=== PATIENT | male | born 1970 | race Caucasian/White ===

== ENCOUNTER 2020-03-04 23:52 | Inpatient (IN) | payer SELFPAY ==
[~2020-03-04] VITALS: Ht 162.6 cm; Wt 65.8 kg
[2020-03-04] MEDS ORDERED: SODIUM CHLORIDE 0.9% 1000ML 1,000 ML IV STA (23:55)
[2020-03-05] VITALS (7 sets, daily range): BP systolic 110–129; BP diastolic 75–88
--- NOTE | 2020-03-05 | Emergency Department Note ---
History of Present Illnes History of Present Illness History of Present Illness This is a 50 year old Unknown male was walking across the street when he suddenly passed out with (+) LOC. EMS transported patient uneventfully to ED. Patient AO x 3 without CP . 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 Onset (how long ago): hour(s) Severity: moderate Onset quality: sudden Duration (how long): hour(s) Timing of current episode: constant Progression: partially resolved Chronicity: new Context: Denies recent illness, Denies recent surgery, Denies recent immobilization, Denies recent travel, Denies trauma/injury, Denies new medications, Denies hx of DVT/PE, Denies non-compliance w/ medications, Denies other Relieving factors: none Exacerbating factors: none Associated symptoms: Denies denies other symptoms, Denies confusion, Denies chest pain, Denies cough, Denies diaphoresis, Denies fever/chills, Denies headaches, Denies loss of appetite, Denies malaise, Denies nausea/vomiting, Denies rash, Denies seizure, Denies shortness of breath, Denies syncope, Denies weakness, Denies other Past Medical/Family History Physician Review I have reviewed the patient's past medical and family history. Any updates have been documented here. Past Medical History Recent Fever: No Clinical Suspicion of Infectio: No New/Unexplained Change in Ment: No Past Medical History: None Past Surgical History: None Social History Smoking Cessation: Current some day smoker Counseling Performed: Yes Alcohol Use: Daily Any Illegal Drug Use: No Other Last Tetanus: UNK Review of Systems Review of Systems Constitutional: Reports no symptoms EENTM: Reports no symptoms Cardiovascular: Reports no symptoms Respiratory: Reports no symptoms Gastrointestinal: Reports no symptoms Genitourinary: Reports no symptoms Musculoskeletal: Reports no symptoms Integumentary: Reports no symptoms Neurological: Reports no symptoms Psychological: Reports no symptoms Endocrine: Reports no symptoms Hematological/Lymphatic: Reports no symptoms Physical Exam Related Data Allergies: Coded Allergies: No Known Allergies (Unverified , 04/03/15) Triage Vital Signs Vital Signs Date Time Temp Pulse Resp B/P (MAP) Pulse Ox O2 Delivery O2 Flow Rate FiO2 03/04/20 23:53 98.4 91 20 139/97 97 Room Air 03/05/20 04:45 2.0 Vital signs reviewed: Yes Physical Exam CONSTITUTIONAL Constitutional: Present well-developed, Present well-nourished HENT HENT: Present other (multiple facial abrasions. 2 cm lacertion b/l suborbital region) HENT L/R: Present left ext ear normal, Present right ext ear normal EYES Eyes: Reports PERRL, Reports conjunctivae normal NECK Neck: Present ROM normal PULMONARY Pulmonary: Present effort normal, Present breath sounds normal CARDIOVASCULAR Cardiovascular: Present regular rhythm, Present heart sounds normal, Present capillary refill normal, Present normal rate GASTROINTESTINAL Abdominal: Present soft, Present nontender, Present bowel sounds normal GENITOURINARY Genitourinary: Present exam deferred SKIN Skin: Present warm, Present dry MUSCULOSKELETAL Musculoskeletal: Present ROM normal NEUROLOGICAL Neurological: Present alert, Present oriented x 3, Present no gross motor or sensory deficits PSYCHOLOGICAL Psychological: Present mood/affect normal, Present judgement normal Results Laboratory Lab results reviewed: Yes Laboratory comments Laboratory Tests Test 03/05/20 00:50 White Blood Count 7.46 x10e3/uL (4.8-10.8) Red Blood Count 4.32 x10e6/uL (4.3-5.7) Hemoglobin 14.2 g/dL (14.0-18.0) Hematocrit 38.2 % (38.2-49.6) Mean Corpuscular Volume 88.4 fL (81-99) Mean Corpuscular Hemoglobin 32.9 pg (28-32) Mean Corpuscular Hemoglobin Concent 37.2 g/dL (31-35) Red Cell Distribution Width 12.4 % (11.7-14.4) Platelet Count 121 x10e3/uL (140-360) Neutrophils (%) (Auto) 72.0 % (38.7-80.0) Lymphocytes (%) (Auto) 12.2 % (18.0-39.1) Monocytes (%) (Auto) 13.4 % (4.4-11.3) Eosinophils (%) (Auto) 1.2 % (0.0-6.0) Basophils (%) (Auto) 0.8 % (0.0-1.0) Neutrophils # (Auto) 5.4 (2.1-6.9) Lymphocytes # (Auto) 0.9 (1.0-3.2) Monocytes # (Auto) 1.0 (0.2-0.8) Eosinophils # (Auto) 0.1 (0.0-0.4) Basophils # (Auto) 0.1 (0.0-0.1) Absolute Immature Granulocyte (auto 0.03 x10e3/uL (0-0.1) Sodium Level 124 mmol/L (136-145) Potassium Level 3.5 mmol/L (3.5-5.1) Chloride Level 87 mmol/L (98-107) Carbon Dioxide Level 19 mmol/L (22-29) Anion Gap 21.5 mmol/L (8-16) Blood Urea Nitrogen 9 mg/dL (7-26) Creatinine 0.78 mg/dL (0.72-1.25) Estimat Glomerular Filtration Rate > 60 ML/MIN (60-) BUN/Creatinine Ratio 12 (6-25) Glucose Level 113 mg/dL (74-118) Calcium Level 9.1 mg/dL (8.4-10.2) Total Bilirubin 0.8 mg/dL (0.2-1.2) Aspartate Amino Transf (AST/SGOT) 178 IU/L (5-34) Alanine Aminotransferase (ALT/SGPT) 138 IU/L (0-55) Alkaline Phosphatase 57 IU/L (40-150) Creatine Kinase 412 IU/L (30-200) Creatine Kinase MB 5.70 ng/mL (0-5.0) Troponin I 0.001 ng/mL (0-0.300) Total Protein 7.4 g/dL (6.5-8.1) Albumin 4.6 g/dL (3.5-5.0) Globulin 2.8 g/dL (2.3-3.5) Albumin/Globulin Ratio 1.6 (0.8-2.0) Ethyl Alcohol Level 336.9 mg/dL (0.0-10.0) Imaging Imaging results reviewed: Yes Impressions [place] [address] Patient Name: HUSEYIN LEONARD MR #: [id number] : 1970 Age/Sex: 50/M Req #: [id number] Adm Physician: Ordered by: PATRICIA KENT DO Report #: [id number] Location: ER Room/Bed: Procedure: [id number] CT/CT MAXIO FAC/PARANAS WO Exam Date: Exam Time: REPORT STATUS: Signed CT BRAIN WO, CT MAXIO FAC/PARANAS WO HISTORY: Trauma COMPARISON: None. TECHNIQUE: Axial CT images through the head and face were obtained without contrast. Coronal/sagittal reformations were created. One or more of the following dose reduction techniques were used: Automated exposure control, adjustment of the mA and/or kV according to patient size, and/or utilization of iterative reconstruction technique. DISCUSSION: HEAD CT: Motion and beam hardening artifacts obscure some details. Scalp/Skull: Unremarkable. Brain sulci: Appropriate for patient's age. Ventricles: Normal in size and configuration. No hydrocephalus. Extra-axial spaces: No masses or fluid collections. Parenchyma: No abnormal densities. No masses, hemorrhage, or large vascular territory acute infarct. Dural sinuses: No abnormal densities. Sellar/Suprasellar region: Intact. Skull base: Intact. Incidental findings: None. FACIAL CT: Mild bilateral superficial periorbital edema is present. Minimally displaced fractures of the right nasal bone and anterior nasal spine are age indeterminate. Otherwise, no definite additional acute fracture is seen. There are mild degenerative changes throughout the spine. The orbits are intact. Intraorbital contents are grossly unremarkable. Minimal bilateral maxillary sinus and ethmoid air cell mucosal thickening is present. Apparent posterior sagging of the left tongue may be due to left hypoglossal nerve denervation. This can be correlated with physical exam. The left piriform sinus is mildly patulous, which could be seen in left vocal cord palsy. IMPRESSION: Head CT: No acute intracranial abnormalities. Maxillofacial CT: 1. Age indeterminate minimally displaced fractures of the right nasal bone and anterior nasal spine. 2. Otherwise, no acute osseous abnormalities in the face. 3. Apparent posterior sagging of the left tongue may be due to left hypoglossal nerve denervation. This can be correlated with physical exam. 4. Mildly patulous left piriform sinus, which could be seen in left vocal cord palsy. Signed by: Dr. Kirit [place] M.D. on 03/05/2020 1:43 AM Dictated By: KIRIT CASTRO MD 2 Transcribed By: MATT on 03/05/20142 COPY TO: PATRICIA KENT DO~ [place] [address] Patient Name: HUSEYIN LEONARD MR #: [id number] : 1970 Age/Sex: 50/M Req #: [id number] Adm Physician: Ordered by: PATRICIA KENT DO Report #: [id number] Location: ER Room/Bed: Procedure: DX/SHOULDER RIGHT COMPLETE Exam Date: Exam Time: REPORT STATUS: Signed SHOULDER RIGHT COMPLETE - 2 views HISTORY: Pain COMPARISON: None available. FINDINGS: Bones: No acute displaced fracture. Osseous alignment is within normal limits. Joints: The joint spaces are well-maintained. Soft tissues: The soft tissues appear unremarkable. IMPRESSION: No acute radiographic abnormality. Signed by: Dr. Sai Gaspar MD on 03/05/2020 1:30 AM Dictated By: SAI GASPAR MD 9 Transcribed By: MATT on 03/05/20129 COPY TO: PATRICIA KENT DO~ Procedures 12 Lead ECG Interpretation ECG Interpretation : ECG: ECG 1 Manuscript Reader: Interpreted by ED physician Date: Mar 05, 2020 Time: 00:29 Prior ECG tracings: reviewed Rhythm: sinus rhythm Ectopy: PJC's Rate: normal BPM: 98 QRS axis: normal ST segments normal: Yes T waves normal: Yes Clinical Impression: normal ECG Laceration Laceration: Laceration 1 Site: face Side: left Size (cm): 2 Description: linear Depth: simple, single layer Skin layer closed with: other (skin adhesive) Assessment & Plan Medical Decision Making MDM Diff Dx : acute coronary syndrome, PE, drug/alcohol intoxication, dehydration, electrolyte abnormality Assessment & Plan Final Impression: (1) Syncope and collapse (2) Facial laceration (3) Alcohol abuse (4) Hyponatremia Depart Disposition: ADMITTED Home Meds No Active Prescriptions or Reported Meds PATRICIA KENT DO Mar 04, 2020 23:59
[2020-03-05 01:00] LABS: BASOPHILS # (AUTO) 0.1 (0.0-0.1); BASOPHILS % 0.8 % (0.0-1.0); EOSINOPHILS # (AUTO) 0.1 (0.0-0.4); EOSINOPHILS % 1.2 % (0.0-6.0); HEMATOCRIT 38.2 % (38.2-49.6); HEMOGLOBIN 14.2 g/dL (14.0-18.0); LYMPHOCYTES # (AUTO) 0.9 (1.0-3.2); LYMPHOCYTES % 12.2 % (18.0-39.1); MEAN CORPUSCULAR HEMOGLOBIN 32.9 pg (28-32); MEAN CORPUSCULAR HGB CONC 37.2 g/dL (31-35); MEAN CORPUSCULAR VOLUME 88.4 fL (81-99); MONOCYTES % 13.4 % (4.4-11.3); NEUTROPHILS # (AUTO) 5.4 (2.1-6.9); PLATELET COUNT 121 x10e3/uL (140-360); RED BLOOD COUNT 4.32 x10e6/uL (4.3-5.7); RED CELL DISTRIBUTION WIDTH 12.4 % (11.7-14.4)
[2020-03-05 01:18] LABS: ALANINE AMINOTRANSFERASE 138 IU/L (0-55); ALBUMIN 4.6 g/dL (3.5-5.0); ALBUMIN/GLOBULIN RATIO 1.6 (0.8-2.0); ALKALINE PHOSPHATASE 57 IU/L (40-150); ANION GAP 21.5 mmol/L (8-16); BLOOD UREA NITROGEN 9 mg/dL (7-26); BUN/CREATININE RATIO 12 (6-25); CALCIUM 9.1 mg/dL (8.4-10.2); CARBON DIOXIDE 19 mmol/L (22-29); CHLORIDE 87 mmol/L (98-107); CREATINE KINASE 412 IU/L (30-200); CREATININE, SERUM 0.78 mg/dL (0.72-1.25); EST GLOMERULAR FILTRATION RATE > 60 ML/MIN (60-); GLUCOSE 113 mg/dL (74-118); POTASSIUM 3.5 mmol/L (3.5-5.1); SODIUM 124 mmol/L (136-145)
--- NOTE | 2020-03-05 01:33 | Diagnostic Imaging Report ---
SHOULDER RIGHT COMPLETE - 2 views HISTORY: Pain COMPARISON: None available. FINDINGS: Bones: No acute displaced fracture. Osseous alignment is within normal limits. Joints: The joint spaces are well-maintained. Soft tissues: The soft tissues appear unremarkable. IMPRESSION: No acute radiographic abnormality. Signed by: Dr. Sai Torres MD on 03/05/2020 1:30 AM
--- OUTSIDE RECORDS SUMMARY | 2020-03-05 01:35 | XMS REPORT | Continuity of Care Document ---
Author Author [facility] Organization [facility] Address [address] [place] [address] Phone Unavailable Care Team Providers Care Program Project Analyst Name Role Phone PATRICIA KENT Unavailable Problems This patient has no known problems. Allergies, Adverse Reactions, Alerts This patient has no known allergies or adverse reactions. Medications This patient has no known medications. Procedures This patient has no known procedures. Results Test Description Test Time Test Comments Results Result Comments Source SHOULDER RIGHT COMPLETE 2020-03-05 01:29:00 [facility] [address] [place] [address] Patient Name: HUSEYIN LEONARD MR #: [id number] : 1970 Age/Sex: 50/M Req #: [id number] Adm Physician: Ordered by: PATRICIA KENT DO Report #: [id number] Location: ER Room/Bed: Procedure: [id number] DX/SHOULDER RIGHT COMPLETE Exam Date: Exam Time: REPORT STATUS: Signed SHOULDER RIGHT COMPLETE - 2 views HISTORY: Pain COMPARISON: None available. FINDINGS: Bones: No acute displaced fracture. Osseous alignment is within normal limits. Joints: The joint spaces are well-maintained. Soft tissues: The soft ti ssues appear unremarkable. IMPRESSION: No acute radiographic abnormality. Signed by: Dr. Sai Gaspar MD on 03/05/2020 1:30 AM Dictated By: SAI GASPAR MD 9 Transcribed By: MATT on 03/05/20129 COPY TO: PATRICIA KENT DO
--- NOTE | 2020-03-05 01:46 | Diagnostic Imaging Report ---
CT BRAIN WO, CT MAXIO FAC/PARANAS WO HISTORY: Trauma COMPARISON: None. TECHNIQUE: Axial CT images through the head and face were obtained without contrast. Coronal/sagittal reformations were created. One or more of the following dose reduction techniques were used: Automated exposure control, adjustment of the mA and/or kV according to patient size, and/or utilization of iterative reconstruction technique. DISCUSSION: HEAD CT: Motion and beam hardening artifacts obscure some details. Scalp/Skull: Unremarkable. Brain sulci: Appropriate for patient's age. Ventricles: Normal in size and configuration. No hydrocephalus. Extra-axial spaces: No masses or fluid collections. Parenchyma: No abnormal densities. No masses, hemorrhage, or large vascular territory acute infarct. Dural sinuses: No abnormal densities. Sellar/Suprasellar region: Intact. Skull base: Intact. Incidental findings: None. FACIAL CT: Mild bilateral superficial periorbital edema is present. Minimally displaced fractures of the right nasal bone and anterior nasal spine are age indeterminate. Otherwise, no definite additional acute fracture is seen. There are mild degenerative changes throughout the spine. The orbits are intact. Intraorbital contents are grossly unremarkable. Minimal bilateral maxillary sinus and ethmoid air cell mucosal thickening is present. Apparent posterior sagging of the left tongue may be due to left hypoglossal nerve denervation. This can be correlated with physical exam. The left piriform sinus is mildly patulous, which could be seen in left vocal cord palsy. IMPRESSION: Head CT: No acute intracranial abnormalities. Maxillofacial CT: 1. Age indeterminate minimally displaced fractures of the right nasal bone and anterior nasal spine. 2. Otherwise, no acute osseous abnormalities in the face. 3. Apparent posterior sagging of the left tongue may be due to left hypoglossal nerve denervation. This can be correlated with physical exam. 4. Mildly patulous left piriform sinus, which could be seen in left vocal cord palsy. Signed by: Dr. Kirit [place] M.D. on 03/05/2020 1:43 AM
[2020-03-05] MEDS ORDERED: ONDANSETRON HCL INJ 2MG/ML 2ML 2 MG/ML VIAL IV PRN (02:30)
--- OUTSIDE RECORDS SUMMARY | 2020-03-05 02:52 | XMS REPORT | Continuity of Care Document ---
Author Author [facility] Organization [facility] Address [address] [place] [address] Phone Unavailable Care Team Providers Care Risk Prevention Engineer Name Role Phone PATRICIA KENT Unavailable Problems This patient has no known problems. Allergies, Adverse Reactions, Alerts This patient has no known allergies or adverse reactions. Medications This patient has no known medications. Procedures This patient has no known procedures. Results Test Description Test Time Test Comments Results Result Comments Source SHOULDER RIGHT COMPLETE 2020-03-05 01:29:00 [facility] [address] [place] [address] Patient Name: HUSEYIN LEONARD MR #: [id number] : 1970 Age/Sex: 50/M Req #: [id number] Adm Physician: Ordered by: PATRICIA KENT DO Report #: [id number] Location: ER Room/Bed: Procedure: [id number] DX/SHOULDER RIGHT COMPLETE Exam Date: Exam Time: [...] on 03/05/20129 COPY TO: PATRICIA KENT DO CT MAXIO FAC/PARANAS WO 2020-03-05 01:29:00 [facility] [address] [place] [address] Patient Name: HUSEYIN LEONARD MR #: [id number] : 1970 Age/Sex: 50/M Req #: [id number] Adm Physician: Ordered by: PATRICIA KENT DO Report #: [id number] Location: ER Room/Bed: Procedure: CT/CT MAXIO FAC/PARANAS WO Exam Date: Exam Time: REPORT STATUS: Signed CT BRAIN WO, CT MAXIO FAC/PARANAS WO HISTORY: Trauma COMPARISON: None. TECHNIQUE: Axial CT images through the head and face were obtained without contrast. Coronal/sagittal reformations were created. One or more of the following dose reduction techniques were used: Automated exposure control, adjustment of the mA and/or kV according to patient size, and/or utilization of iterative reconstruction technique. DISCUSSION: HEAD CT: Motion and beam hardening artifacts obscure some details. Scalp/Skull: Unremarkable. Brain sulci: Appropriate for patient's age. Ventricles: Normal in size and configuration. No hydrocephalus. Extra-axial spaces: No masses or fluid collections. Parenchyma: No abnormal densities. No masses, hemorrhage, or large vascular territory acute infarct. Dural sinuses: No abnormal densities. Sellar/Suprasellar region: Intact. Skull base: Intact. Incidental findings: None. FACIAL CT: Mild bilateral superficial periorbital edema is present. Minimally displaced fractures of the right nasal bone and anterior nasal spine are age indeterminate. Otherwise, no definite additional acute fracture is seen. There are mild degenerative changes throughout the spine. The orbits are intact. Intraorbital contents are grossly unremarkable. Minimal bilateral maxillary sinus and ethmoid air cell mucosal thickening is present. Apparent posterior sagging of the left tongue may be due to left hypoglossal nerve denervation. This can be correlated with physical exam. The left piriform sinus is mildly patulous, which could be seen in left vocal cord palsy. IMPRESSION: Head CT: No acute intracranial abnormalities. Maxillofacial CT: 1. Age indeterminate minimally displaced fractures of the right nasal bone and anter ior nasal spine. 2. Otherwise, no acute osseous abnormalities in the face. 3. Apparent posterior sagging of the left tongue may be due to left hypoglossal nerve denervation. This can be correlated with physical exam. 4. Mildly patulous left piriform sinus, which could be seen in left vocal cord palsy. Signed by: Dr. Kirit [place] M.D. on 03/05/2020 1:43 AM Dictated By: KIRIT CASTRO MD 2 Transcribed By: MATT on 03/05/20142 COPY TO: PATRICIA KENT DO CT BRAIN WO 2020-03-05 01:29:00 [place] [address] Patient Name: HUSEYIN LEONARD MR #: [id number] : 1970 Age/Sex: 50/M Req #: [id number] Adm Physician: Ordered by: PATRICIA KENT DO Report #: [id number] Location: ER Room/Bed: Procedure: [id number] CT/CT BRAIN WO Exam Date: Exam Time: REPORT STATUS: Signed CT BRAIN WO, CT MAXIO FAC/PARANAS WO HISTORY: Trauma COMPARISON: None. TECHNIQUE: Axial CT images through the head and face were obtained without contrast. Coronal/sagittal reformations were created. One or more of the following dose reduction techniques were used: Automated exposure control, adjustment of the mA and/or kV according to patient size, and/or utilization of iterative reconstruction technique. DISCUSSION: HEAD CT: Motion and beam hardening artifacts obscure some details. Scalp/Skull: Unremarkable. Brain sulci: Appropriate for patient's age. Ventricles: Normal in size and configuration. No hydrocephalus. Extra-axial spaces: No masses or fluid collections. Parenchyma: No abnormal densities. No masses, hemorrhage, or large vascular territory acute infarct. Dural sinuses: No abnormal densities. Sellar/Suprasellar region: Intact. Skull base: Intact. Incidental findings: None. FACIAL CT: Mild bilateral superficial periorbital edema is present. Minimally displaced fractures of the right nasal bone and anterior nasal spine are age indeterminate. Otherwise, no definite additional acute fracture is seen. There are mild degenerative changes throughout the spine. The orbits are intact. Intraorbital contents are grossly unremarkable. Minimal bilateral maxillary sinus and ethmoid air cell mucosal thickening is present. Apparent posterior sagging of the left tongue may be due to left hypoglossal nerve denervation. This can be correlated with physical exam. The left piriform sinus is mildly patulous, which could be seen in left vocal cord palsy. IMPRESSION: Head CT: No acute intracranial abnormalities. Maxillofacial CT: 1. Age indeterminate minimally displaced fractures of the right nasal bone and anterior nasal spine. 2. Otherwise, no acute osseous abnormalities in the face. 3. Apparent posterior sagging of the left tongue may be due to left hypoglossal nerve denervation. This can be correlated with physical exam. 4. Mildly patulous left piriform sinus, which could be seen in left vocal cord palsy. Signed by: Dr. Kirit [place] M.D. on 03/05/2020 1:43 AM Dictated By: KIRIT CASTRO MD 2 Transcribed By: MATT on 03/05/20142 COPY TO: PATRICIA KENT DO
[2020-03-05] MEDS: SODIUM CHLORIDE 0.9% 1000ML 1,000 ML IV SCH ×3 (03:23→18:23)
[2020-03-05] MEDS ORDERED: MULTIVITAMINS- 12 INJECTION 10 ML, FOLIC ACID MDV 5 MG, THIAMINE HCL INJ 100 MG in SODI... IV ONE ×2 (03:30→18:45)
[2020-03-05] MEDS ORDERED: FOLIC ACID 5 MG/ML VIAL ONE (03:41)
[2020-03-05] MEDS ORDERED: THIAMINE HCL INJ 100 MG/ML 2ML VIAL ONE (03:41)
[2020-03-05] MEDS ORDERED: MULTIVITAMINS INJECTION ONE ×2 (03:42→03:48)
[2020-03-05] MEDS ORDERED: SODIUM CHLORIDE 0.9% 1000ML 1,000 ML IV SCH (03:45)
[2020-03-05] MEDS ORDERED: SODIUM CHLORIDE 0.9% 1000ML 1,000 ML ONE (03:48)
[2020-03-05] MEDS ORDERED: DIAZEPAM INJ 5 MG/ML 2 ML IV ONE (04:00)
--- NOTE | 2020-03-05 07:00 | NUR ---
RCD PT AT BED PT IS ALERT AND ORIENTED VITALS CHECKED ,ADMISSION ASSESSMENT ,HISTORY AND FAMILY HISTORY DONE ,PT IS HOMELESS ,ACCORDING TO PT WHILE CROSSINGS STREET HE PASSED OUT BRUISES ON THE FACE ,IV PATENT INSTRUCTED THE PT REGARDING HOSPITAL POLICY AND ROUTINE BED LOW AND LOCKED CALL LIGHT IN REACH
--- NOTE | 2020-03-05 07:00 | NUR ---
PATIENT ARRIVED VIA STRETCHER WITH BELONGINGS. RECEIVED REPORT FROM TIMOTHY HURST NURSE. CALL LIGHT WITHIN REACH. PATIENT IN BED. PATIENT AMBULATES WELL AND IS A&OX3. GAVE REPORT TO ONCOMING NURSE.
[2020-03-05 07:32] LABS: AMPHETAMINES SCREEN,URINE NEGATIVE (NEGATIVE); BENZODIAZEPINES SCREEN,URINE NEGATIVE (NEGATIVE); PHENCYCLIDINE SCREEN,URINE NEGATIVE (NEGATIVE)
--- NOTE | 2020-03-05 10:02 | NUR ---
RECEIVED SOCIAL SERVICE CONSULT, CONSULTED WITH PT'S NURSE WHO STATED PT IS HOMELESS. MET WITH PT, PROVIDED SELF PAY PACKET WITH COMMUNITY RESOURCES WHICH INCLUDES HOMELESS RESOURCES- LIST OF HOMELESS SHELTERS, MEALS PLACES, FOOD PANTRIES, PROJECT ACCESS BUS ETC. PROVIDED INFORMATION ON APPLYING FOR HOMELESS GOLD CARD, REFERRED TO THE [facility]ALTH[facility] FOR THE HOMELESS PROGRAM FOR FURTHER ASSISTANCE WITH HOUSING.
--- NOTE | 2020-03-05 13:00 | NUR ---
DR CODY AWARE ABOUT ABNORMAL CK[facility]
[2020-03-05] MEDS: ACETAMINOPHEN 325 MG TAB PO PRN ×2 (13:12→19:03)
[2020-03-05] MEDS: PANTOPRAZOLE SOD 40 MG TABEC PO SCH (13:15)
--- NOTE | 2020-03-05 18:42 | NUR ---
PT RESTING ON BED BED SIDE REPORT GIVEN TO ONCOMING NURSE
[2020-03-05 18:52] LABS: CREATINE KINASE MB 8.7 ng/mL (0-5.0)
--- NOTE | 2020-03-05 19:30 | NUR ---
Bedside shift report received from day RN. Pt is alert and oriented x3. Pt is cooperative with care. Bruises on face and head s/p fall- hx alcohol abuse. Pt is tolerating po well. Respirations are even and unlabored. Left forearm iv 18G- site healthy. PIV infusing at 125 ml/hr.Tele with pulse ox on.Pt walking to bathroom- voiding without difficulty. Call light within reach. Bed locked and in low position.
[2020-03-06] VITALS (7 sets, daily range): BP systolic 112–131; BP diastolic 81–88
[2020-03-06] MEDS: SODIUM CHLORIDE 0.9% 1000ML 1,000 ML IV SCH ×3 (01:51→17:03)
[2020-03-06] MEDS: ACETAMINOPHEN 325 MG TAB PO PRN (01:57)
[2020-03-06 06:04] LABS: BASOPHILS # (AUTO) 0.1 (0.0-0.1); BASOPHILS % 0.8 % (0.0-1.0); EOSINOPHILS # (AUTO) 0.1 (0.0-0.4); EOSINOPHILS % 1.7 % (0.0-6.0); HEMATOCRIT 31.5 % (38.2-49.6); HEMOGLOBIN 11.1 g/dL (14.0-18.0); LYMPHOCYTES # (AUTO) 1.5 (1.0-3.2); LYMPHOCYTES % 20.6 % (18.0-39.1); MEAN CORPUSCULAR HEMOGLOBIN 33.7 pg (28-32); MEAN CORPUSCULAR HGB CONC 35.2 g/dL (31-35); MEAN CORPUSCULAR VOLUME 95.7 fL (81-99); NEUTROPHILS # (AUTO) 4.4 (2.1-6.9); NEUTROPHILS % 62.3 % (38.7-80.0); PLATELET COUNT 87 x10e3/uL (140-360); RED BLOOD COUNT 3.29 x10e6/uL (4.3-5.7); RED CELL DISTRIBUTION WIDTH 13.2 % (11.7-14.4)
[2020-03-06 06:15] LABS: ALANINE AMINOTRANSFERASE 83 IU/L (0-55); ALBUMIN 3.3 g/dL (3.5-5.0); ALBUMIN/GLOBULIN RATIO 1.7 (0.8-2.0); ALKALINE PHOSPHATASE 79 IU/L (40-150); ANION GAP 13.1 mmol/L (8-16); BLOOD UREA NITROGEN 10 mg/dL (7-26); BUN/CREATININE RATIO 15 (6-25); CALCIUM 7.5 mg/dL (8.4-10.2); CARBON DIOXIDE 21 mmol/L (22-29); CHLORIDE 102 mmol/L (98-107); CREATININE, SERUM 0.67 mg/dL (0.72-1.25); EST GLOMERULAR FILTRATION RATE > 60 ML/MIN (60-); GLUCOSE 112 mg/dL (74-118); MAGNESIUM 1.2 MG/DL (1.3-2.1); POTASSIUM 3.1 mmol/L (3.5-5.1); SODIUM 133 mmol/L (136-145)
--- NOTE | 2020-03-06 07:05 | NUR ---
RCD PT AT BED PT IS ALERT AND ORIENTED AND RESTING ON BED IV PATENT BED LOW AND LOCKED CALL LIGHT IN REACH
[2020-03-06] MEDS: PANTOPRAZOLE SOD 40 MG TABEC PO SCH (07:30)
[2020-03-06 09:09] LABS: PLATELET ESTIMATE MODERATELY DECREASED; PLATELET MORPHOLOGY COMMENT MODERATE LARGE; RBC MORPHOLOGY COMMENT NORMAL
[2020-03-06] MEDS: MAGNESIUM OXIDE 400 MG TAB PO SCH ×2 (12:59→17:00)
[2020-03-06] MEDS: POTASSIUM CHLORIDE 20 MEQ TAB CR PO SCH ×2 (12:59→17:00)
--- NOTE | 2020-03-06 18:41 | NUR ---
PT RESTING ON BED BED SIDE REPORT GIVEN TO ONCOMING NURSE
--- NOTE | 2020-03-06 19:25 | NUR ---
BEDSIDE SHIFT REPORT RECEIVED FROM DAY RN. PT IS ALERT AND ORIENTED X3. PT COOPERATIVE WITH CARE. RESPIRATIONS ARE EVEN AND UNLABORED. LUNGS CLEAR. INTERMITENT COUGH- SECRETIONS CREAMY WHITE SCANT AMOUNT. TELE WITH PULSE OX ON.NS INFUSING AT 125 ML /HR VIA LEFT FA 20G. SITE HEALTHY. PT UP TO BATHROOM VOIDING WITHOUT DIFFICULTY. PT DENIES PAIN. ABRASSIONS AND BRUISING ON FACE AND HEAD- S/P FALL PRIOR TO ADMISSION. CALL LIGHT WITHIN REACH. BED IN LOW POSITION.
[2020-03-06] MEDS ORDERED: LORAZEPAM 0.5 MG TAB PO NR (19:45)
[2020-03-06] MEDS ORDERED: LORAZEPAM 0.5 MG TAB PO ONE (19:45)
--- NOTE | 2020-03-06 19:45 | NUR ---
DR CODY'S OFFICE CALLED WHEN PT CAME OUT TO DESK ASKING IF HE COULD GO OUTSIDE. PT STATED HE "FELT ALL CLOSED IN AND WANTED TO GO OUTSIDE." HAND SHAKEY AT TIMES. [employer] SUPPORT REPRESENTATIVE GAVE ORDER FOR 1 TIME ATIVAN PO.ATIVAN GIVEN. WILL MONITOR FOR RELIEF OF ANXIETY.
--- NOTE | 2020-03-06 20:30 | NUR ---
PT EATTING SNACKS.PT CALMER WATCHING TV. WILL CONTINUE TO MONITOR FOR AGITATION AND ANXIETY.
[2020-03-06] MEDS ORDERED: HYDRALAZINE HCL 20 MG/ML VIAL IV PRN (22:15)
[2020-03-06] MEDS ORDERED: LORAZEPAM INJ 2 MG/ML VIAL IV PRN (22:15)
[2020-03-07] VITALS (7 sets, daily range): BP systolic 126–145; BP diastolic 76–93
[2020-03-07 05:57] LABS: BASOPHILS # (AUTO) 0.1 (0.0-0.1); BASOPHILS % 1.1 % (0.0-1.0); EOSINOPHILS # (AUTO) 0.1 (0.0-0.4); EOSINOPHILS % 2.1 % (0.0-6.0); HEMATOCRIT 30.1 % (38.2-49.6); HEMOGLOBIN 10.8 g/dL (14.0-18.0); LYMPHOCYTES # (AUTO) 1.4 (1.0-3.2); LYMPHOCYTES % 25.7 % (18.0-39.1); MEAN CORPUSCULAR HEMOGLOBIN 35.1 pg (28-32); MEAN CORPUSCULAR HGB CONC 35.9 g/dL (31-35); MEAN CORPUSCULAR VOLUME 97.7 fL (81-99); MONOCYTES # (AUTO) 0.7 (0.2-0.8); MONOCYTES % 12.3 % (4.4-11.3); NEUTROPHILS # (AUTO) 3.3 (2.1-6.9); NEUTROPHILS % 58.3 % (38.7-80.0); PLATELET COUNT 95 x10e3/uL (140-360); RED BLOOD COUNT 3.08 x10e6/uL (4.3-5.7); RED CELL DISTRIBUTION WIDTH 13.8 % (11.7-14.4)
[2020-03-07 06:09] LABS: ANION GAP 13.5 mmol/L (8-16); BLOOD UREA NITROGEN 6 mg/dL (7-26); BUN/CREATININE RATIO 10 (6-25); CALCIUM 7.6 mg/dL (8.4-10.2); CARBON DIOXIDE 22 mmol/L (22-29); CHLORIDE 104 mmol/L (98-107); CREATININE, SERUM 0.61 mg/dL (0.72-1.25); EST GLOMERULAR FILTRATION RATE > 60 ML/MIN (60-); GLUCOSE 85 mg/dL (74-118); POTASSIUM 3.5 mmol/L (3.5-5.1); SODIUM 136 mmol/L (136-145)
[2020-03-07 06:44] LABS: MAGNESIUM 1.1 MG/DL (1.3-2.1)
--- NOTE | 2020-03-07 07:00 | NUR ---
lab called with critical magnesium1.1. RN called [facility] regarding labs. reported to Day MALENA.
[2020-03-07] MEDS ORDERED: MAGNESIUM SULFATE 2GM/50ML 50 ML IV ONE (07:15)
[2020-03-07] MEDS: PANTOPRAZOLE SOD 40 MG TABEC PO SCH (08:24)
[2020-03-07] MEDS ORDERED: POTASSIUM CHLORIDE 20 MEQ TAB CR PO SCH (12:00)
[2020-03-07 15:24] LABS: BLOOD UREA NITROGEN 6 mg/dL (7-26); BUN/CREATININE RATIO 9 (6-25); CARBON DIOXIDE 21 mmol/L (22-29); CHLORIDE 104 mmol/L (98-107); CREATININE, SERUM 0.69 mg/dL (0.72-1.25); EST GLOMERULAR FILTRATION RATE > 60 ML/MIN (60-); GLUCOSE 135 mg/dL (74-118); SODIUM 136 mmol/L (136-145)
--- NOTE | 2020-03-07 15:31 | NUR ---
Paged Leatha Yancey [employer] to notify of la results
--- NOTE | 2020-03-07 18:15 | NUR ---
Left FA IV discontinued. NO signs of infiltration noted. 2x2 gauze and coban placed. AAOx3 to time, person, place. Respirations even and unlabored. Discharge instructions and all personal belongings taken with patient. NO rx available.
--- NOTE | 2020-03-07 20:02 | Discharge Summary ---
ADMISSION DIAGNOSES: Syncope, alcohol intoxication, facial contusion, hyponatremia, and hypokalemia. DISCHARGE DIAGNOSES: Syncope, alcohol intoxication, facial contusion, hyponatremia, hypokalemia, and rule out cerebrovascular accident. HISTORY: None. SURGICAL HISTORY: None. FAMILY HISTORY: None. SOCIAL HISTORY: The patient admits to tobacco and alcohol use. He denies illicit drug use. HOSPITAL COURSE: A 50-year-old male with no past medical history, was drinking, blacked out and fell on his face to concrete. On admission, EKG showed sinus rhythm with PVCs. Urine drug screen was negative. Alcohol level was 336. CK was 412. IV fluids were started. CT of the brain showed no acute intracranial abnormality. Maxillofacial CT showed minimally displaced fractures of the right nasal bones and anterior nasal spine, otherwise no acute osseous abnormalities in the face. X-ray of the right shoulder showed no acute abnormalities. The patient is feeling better. His vitals have improved. He is able to walk independently and tolerating diet. He will follow up with primary care in 1 to 2 weeks. He was sent home with no new medications. Dictated by Leatha Yancey NP MD CAROL Arguelles/MODL /[id number]
== END 2020-03-07 18:18 | disposition home or self-care (01) | DRG 155 ==
LOC: ER 23:56 → ERHOLD 03-05 02:49 → MED/SURG 03-05 04:33 → OBSVTOIN 03-06 12:17
PROVIDERS: ADMIT Internal Medicine; ATTEND Internal Medicine
DX: S02.2XXA Fracture of nasal bones, initial encounter for closed fracture (principal); E87.1 Hypo-osmolality and hyponatremia; M62.82 Rhabdomyolysis; R55 Syncope and collapse; S01.81XA Laceration without foreign body of other part of head, initial encounter; S05.11XA Contusion of eyeball and orbital tissues, right eye, initial encounter; W18.39XA Other fall on same level, initial encounter; Y93.01 Activity, walking, marching and hiking; Y92.410 Unspecified street and highway as the place of occurrence of the external cause; F10.10 Alcohol abuse, uncomplicated; F10.120 Alcohol abuse with intoxication, uncomplicated; Y90.8 Blood alcohol level of 240 mg/100 ml or more; E87.6 Hypokalemia; Z72.0 Tobacco use
CPT/HCPCS: 36415; 70450; 70486; 80048; 80053; 80307; 80320; 82550; 82553; 83735; 84484; 85025; 93005; 97139; 99284; G0378; J3360; J3411; J3475; J7030; U0002

== ENCOUNTER 2020-04-02 17:19 | Emergency (ER) | payer SELFPAY ==
[~2020-04-02] VITALS: Ht 162.6 cm; Wt 65.8 kg
== END 2020-04-02 18:36 | disposition home or self-care (01) ==
LOC: ER 17:26
DX: M54.5 Low back pain (principal); F17.210 Nicotine dependence, cigarettes, uncomplicated
CPT/HCPCS: 99283

== ENCOUNTER 2020-05-28 00:03 | Emergency (ER) | payer SELFPAY ==
[~2020-05-28] VITALS: Ht 162.6 cm; Wt 65.8 kg
[2020-05-28] MEDS ORDERED: MULTIVITAMINS- 12 INJECTION 10 ML, FOLIC ACID MDV 5 MG, THIAMINE HCL INJ 100 MG in SODI... IV ONE (00:15)
[2020-05-28 00:17] LABS: BASOPHILS # (AUTO) 0.1 (0.0-0.1); BASOPHILS % 1.5 % (0.0-1.0); EOSINOPHILS % 0.5 % (0.0-6.0); HEMATOCRIT 35.6 % (38.2-49.6); HEMOGLOBIN 12.5 g/dL (14.0-18.0); LYMPHOCYTES # (AUTO) 1.3 (1.0-3.2); LYMPHOCYTES % 21.9 % (18.0-39.1); MEAN CORPUSCULAR HEMOGLOBIN 34.9 pg (28-32); MEAN CORPUSCULAR HGB CONC 35.1 g/dL (31-35); MEAN CORPUSCULAR VOLUME 99.4 fL (81-99); MONOCYTES # (AUTO) 0.7 (0.2-0.8); MONOCYTES % 11.4 % (4.4-11.3); NEUTROPHILS # (AUTO) 3.8 (2.1-6.9); NEUTROPHILS % 64.2 % (38.7-80.0); PLATELET COUNT 138 x10e3/uL (140-360); RED BLOOD COUNT 3.58 x10e6/uL (4.3-5.7); RED CELL DISTRIBUTION WIDTH 13.9 % (11.7-14.4)
[2020-05-28 00:38] LABS: ALANINE AMINOTRANSFERASE 109 IU/L (0-55); ALBUMIN 3.5 g/dL (3.5-5.0); ALBUMIN/GLOBULIN RATIO 1.1 (0.8-2.0); ALKALINE PHOSPHATASE 88 IU/L (40-150); BLOOD UREA NITROGEN 7 mg/dL (7-26); BUN/CREATININE RATIO 9 (6-25); CALCIUM 8.2 mg/dL (8.4-10.2); CARBON DIOXIDE 26 mmol/L (22-29); CHLORIDE 102 mmol/L (98-107); CREATININE, SERUM 0.75 mg/dL (0.72-1.25); EST GLOMERULAR FILTRATION RATE > 60 ML/MIN (60-); GLUCOSE 97 mg/dL (74-118); SODIUM 143 mmol/L (136-145)
[2020-05-28 00:56] LABS: AMPHETAMINES SCREEN,URINE NEGATIVE (NEGATIVE); BENZODIAZEPINES SCREEN,URINE NEGATIVE (NEGATIVE); BILIRUBIN,URINE NEGATIVE (NEGATIVE); CLARITY,URINE CLEAR (CLEAR); COLOR,URINE YELLOW (YELLOW); KETONES,URINE NEGATIVE (NEGATIVE); LEUKOCYTE ESTERASE ,URINE NEGATIVE (NEGATIVE); NITRITE,URINE NEGATIVE (NEGATIVE); PHENCYCLIDINE SCREEN,URINE NEGATIVE (NEGATIVE); PROTEIN,URINE DIPSTICK 2+ (NEGATIVE); URINE UROBILINOGEN 1 mg/dL (0.2 - 1)
[2020-05-28 01:01] LABS: BACTERIA,URINE RARE /HPF; EPITHELIAL CELLS,URINE FEW /LPF; WBC,URINE (MAN) 0-5 /HPF (0-5)
== END 2020-05-28 18:51 | disposition home or self-care (01) ==
LOC: ER 00:07
DX: F10.129 Alcohol abuse with intoxication, unspecified (principal); M25.551 Pain in right hip; F17.210 Nicotine dependence, cigarettes, uncomplicated
CPT/HCPCS: 36415; 80053; 80307; 80320; 81001; 85025; 99284; J3411; J7030